=== PATIENT | female | born 1955 | race Caucasian/White ===

== ENCOUNTER 2017-12-14 09:26 | Outpatient (CLI) | payer OTHER | END 2017-12-14 09:27 | disposition home or self-care (01) | LOC: BICMAMMO 09:26 | PROVIDERS: ATTEND Family Medicine | DX: N63.21 Unspecified lump in the left breast, upper outer quadrant (principal); Z80.3 Family history of malignant neoplasm of breast | CPT/HCPCS: 77066; G0279 ==

== ENCOUNTER → 2018-01-04 | Day surgery (SDC) | payer OTHER | LOC: BICULT 11:55 | PROVIDERS: ATTEND Family Medicine | PROC: 0HBU3ZX Excision of Left Breast, Percutaneous Approach, Diagnostic (ICD-10-PCS; principal; 2018-01-04) | DX: C50.412 Malignant neoplasm of upper-outer quadrant of left female breast (principal) | CPT/HCPCS: 19083; 88305 ==

== ENCOUNTER 2018-01-22 09:24 | Outpatient (CLI) | payer OTHER ==
[~2018-01-22 09:24] MED LIST: Iopamidol 370 76% 100 ML VIAL ONE
--- NOTE | 2018-01-22 10:45 | ULT ---
SONOGRAM SOFT TISSUE LEFT AXILLA: HISTORY: Left breast cancer. FINDINGS: Sonographic evaluation of the left axilla was performed. No enlarged or otherwise abnormal-appearing axillary lymph nodes are visible. IMPRESSION: No significant abnormalities are demonstrated. POS: [facility]
--- NOTE | 2018-01-22 13:31 | CT ---
CHEST AND ABDOMEN AND PELVIC CT WITH COTNRAST: HISTORY: Breast cancer. Lump in left breast. COMPARISON: None. Baseline study. TECHNIQUE: Chest, abdomen, and pelvic CT are performed with IV contrast. Enteric contrast was not administered. Coronal reformatted images are submitted for interpretation. FINDINGS: CHEST CT: There is no mediastinal mass, lymphadenopathy, or hematoma. Heart size is within normal limits. No pericardial effusion. The thoracic aorta and abdominal aorta have a normal caliber. No periaortic f at stranding. Central pulmonary arteries are unremarkable. There is postsurgical change with probable residual tumor in the left breast. Bilaterally, no axilla ry lymphadenopathy. Trachea and central bronchi are patent. No suspicious masses or consolidation. No pleural effusion or pneumothorax. Calcified mediastinal and lung parenchymal nodules are noted, likely due to previou s granulomatous disease. ABDOMEN CT: Portal vein is patent. The liver, pancreas, and adrenal glands are unremarkable. There are hypodens ities in the spleen, some of which are too small to characterize. The largest hypodensity of the spl een measures 1.1 x 1.3 cm and is not completely characterized on this exam. Though these lesions are somewhat indeterminate, the absence of other areas of metastases suggest that the findings in the sp alvino are likely benign and are favored to represent hemangioma. There is symmetric enhancement of the kidneys. Bilaterally, no obstructive uropathy. No gastrohepatic, retrocrural, or periportal lymphadenopathy. No mesenteric mass, lymphadenopathy, free air, or free fluid. Gastric mucosa, duodenum, and multiple normal-caliber small bowel loops are noted. The ileocecal abe ction is normal. Normal-caliber contrast-filled appendix. Scattered fecal material in a nondistende d, nondilated colon. Minimal diverticulosis in the sigmoid colon. No diverticulitis. PELVIC CT: The urinary bladder is unremarkable. No pelvic mass, lymphadenopathy, free air, or free fluid. Uter us and adnexal structures are essentially unremarkable. There is a hypodensity with fat attenuation near the fundus of the uterus, incompletely evaluated. No evidence of pelvic lymphadenopathy. There are no lytic or blastic lesions in the osseous structures. IMPRESSION: 1. Left breast postsurgical changes with presumed residual tumor. 2. No evidence of metastases in the chest, abdomen, or pelvis. POS: [facility]
== END 2018-01-22 09:25 | disposition home or self-care (01) ==
LOC: ULT 09:24
PROVIDERS: ATTEND Internal Medicine Hematology & Oncology
DX: Z51.11 Encounter for antineoplastic chemotherapy (principal); C50.112 Malignant neoplasm of central portion of left female breast; I08.1 Rheumatic disorders of both mitral and tricuspid valves; Z79.899 Other long term (current) drug therapy
CPT/HCPCS: 71260; 74177; 76999; 93306

== ENCOUNTER 2018-01-26 09:57 | Day surgery (SDC) | payer OTHER ==
[2018-01-25 12:37] VITALS: BMI 24.1
[~2018-01-26 09:57] MED LIST changes: -Iopamidol 370 76% 100 ML VIAL ONE; +PROPOFOL 200 MG/20 ML VIAL ONE
[2018-01-26 11:15] LABS: #Lymphocytes 1.2 thou/uL (1.20-3.40); #Monocytes 0.2 thou/uL (0.11-0.59); #Neutrophils 6.9 thou/uL (1.40-6.50); %Basophils 0.1 % (0.0-1.0); %Eosinophils 0.2 % (0.0-10.0); %Lymphocytes 14.2 % (21.0-51.0); %Monocytes 2.9 % (0.0-10.0); %Neutrophils 82.7 % (42.0-75.0); Hemoglobin 14.8 g/dL (12.0-16.0); Mean Corpuscular Hemoglobin 29.8 pg (27.0-31.0); Mean Corpuscular Volume 90.3 fL (78.0-98.0); Mean Platelet Volume 8.4 fL (7.4-10.4); Platelet Count 215 thou/uL (130-400); RBC Distribution Width 11.9 % (11.5-14.5); Red Blood Cell (RBC) Count 4.96 mill/uL (4.20-5.40); White Blood Cell (WBC) Count 8.3 thou/uL (4.8-10.8)
[2018-01-26] MEDS ORDERED: CEFAZOLIN/Water 2 GM/20 ML SYRINGE ONE (11:19)
[2018-01-26 11:33] LABS: ALT (SGPT) 27 U/L (8-55); AST (SGOT) 24 U/L (5-34); Albumin 4.6 g/dL (3.4-4.8); Alkaline Phosphatase 53 U/L (40-150); Anion Gap 13 mmol/L (10-20); BUN (Urea Nitrogen) 17 mg/dL (9.8-20.1); Calc. Creatinine Clearance 82 mL/min (70-130); Calcium 9.7 mg/dL (7.8-10.44); Carbon Dioxide 27 mmol/L (23-31); Chloride 103 mmol/L (98-107); Estimated GFR-MDRD 77; Globulin 3.2 g/dL (2.4-3.5); Glucose 92 mg/dL (80-115); Potassium 3.7 mmol/L (3.5-5.1); Protein, Total 7.8 g/dL (6.0-8.3); Sodium 139 mmol/L (136-145)
[2018-01-26] MEDS ORDERED: Midazolam HCl 2 mg/2 ml Vial ONE (12:48)
[2018-01-26] MEDS ORDERED: Fentanyl 100 MCG/2 ML VIAL ONE (12:48)
[2018-01-26] MEDS ORDERED: Bupivacaine/Epinephrine 0.25% 30 ML VIAL ONE (12:48)
[2018-01-26] MEDS ORDERED: Propofol 500 MG/50 ML VIAL ONE (12:48)
[2018-01-26] MEDS ORDERED: Lidocaine 2% PF Inj 2 ML VIAL ONE (12:48)
[2018-01-26] MEDS ORDERED: HYDROcodone/Acetaminophen 5/325 mg Tablet ONE (14:40)
--- NOTE | 2018-01-26 14:57 | RAD ---
PORTABLE AP CHEST X-RAY: 01/26/2018 HISTORY: Post Mediport placement. COMPARISON: None available. FINDINGS: A right internal jugular vein Mediport catheter is noted in place with the tip overlying the distal S VC. The cardiac silhouette and pulmonary vasculature are within normal limits. The lungs are clear. No pneumothorax is seen. There is an increased density focus seen overlying the midline lower medi astinum, likely related to a calcified mediastinal lymph node. The osseous structures are intact. IMPRESSION: 1. No acute cardiopulmonary process. 2. Right internal jugular vein Mediport catheter without evidence of a pneumothorax. POS: [facility]
--- NOTE | 2018-01-26 15:07 | OP ---
DATE OF PROCEDURE: 01/26/2018 PREOPERATIVE DIAGNOSIS: Breast cancer. POSTOPERATIVE DIAGNOSIS: Breast cancer. PROCEDURE: Tunneled central line with subcutaneous port (MediPort, CT injectable) SURGEON: Raheel Park M.D. ANESTHESIA: TIVA local. COMPLICATIONS: None. SPECIMEN: None. FINDINGS: Tip of the catheter is at atriocaval junction. PROCEDURE IN DETAIL: The patient was taken to the operating room and placed supine on the table. Af ter sedation was obtained, bilateral neck and chest was prepped and draped in a sterile fashion. Loc al anesthetic infiltrated over the internal jugular vein. Internal jugular vein came using a 22-gaug e finder needle followed by a Seldinger needle. Wire was passed into the superior vena cava under fl uoroscopic guidance. A small eric was made at the wire entrance site. A separate 3-cm incision was made in the right upper chest. Subcutaneous pocket made below the lower incision. Tubing for the Me diPort tunneled from the inferior to superior incision and Yan sheath was placed over the wire i nto the superior vena cava under fluoroscopic guidance. The dilator and wire are removed. The end o f the catheter was threaded into the sheath as the sheath was peeled away. The tip of the catheter w as at the atriocaval junction. MediPort tubing cut to fit the MediPort at the lower incision, connec esthela to the MediPort which was sewn to the chest wall in the subcutaneous pocket. MediPort draws and flushes blood without difficulties flushed with a heparin flush. All wounds are irrigated and closed using 3-0 Vicryl, 4-0 Monocryl, and Dermabond. The patient was en route to recovery in stable condi tion. All instrument counts, needle counts, lap counts were correct.
== END 2018-01-26 15:25 | disposition home or self-care (01) ==
LOC: SDC 09:57
PROVIDERS: ATTEND Surgery
PROC: 05HM33Z Insertion of Infusion Device into Right Internal Jugular Vein, Percutaneous Approach (ICD-10-PCS; principal; 2018-01-26)
DX: C50.919 Malignant neoplasm of unspecified site of unspecified female breast (principal); I10 Essential (primary) hypertension; Z79.899 Other long term (current) drug therapy
CPT/HCPCS: 71045; 80053; 85025; C1788; J1642; J2250; J2704; J3010

== ENCOUNTER 2018-06-07 08:01 | Outpatient (CLI) | payer OTHER ==
[2018-06-07 11:20] LABS: #Eosinphils 0.1 thou/uL (0.0-0.7); #Lymphocytes 1.6 thou/uL (1.20-3.40); #Monocytes 0.6 thou/uL (0.11-0.59); #Neutrophils 3.8 thou/uL (1.40-6.50); %Basophils 0.4 % (0.0-1.0); %Eosinophils 1.2 % (0.0-10.0); %Lymphocytes 25.6 % (21.0-51.0); %Monocytes 10.4 % (0.0-10.0); %Neutrophils 62.5 % (42.0-75.0); Hemoglobin 12.6 g/dL (12.0-16.0); Mean Corpuscular HGB CONC 31.7 g/dL (32.0-36.0); Mean Corpuscular Volume 97.7 fL (78.0-98.0); Mean Platelet Volume 6.6 fL (7.4-10.4); Platelet Count 244 thou/uL (130-400); RBC Distribution Width 13.7 % (11.5-14.5); Red Blood Cell (RBC) Count 4.08 mill/uL (4.20-5.40); White Blood Cell (WBC) Count 6.2 thou/uL (4.8-10.8)
[2018-06-07 11:42] LABS: Anion Gap 10 mmol/L (10-20); BUN (Urea Nitrogen) 12 mg/dL (9.8-20.1); Calc. Creatinine Clearance 0 mL/min (70-130); Calcium 9.6 mg/dL (7.8-10.44); Carbon Dioxide 28 mmol/L (23-31); Chloride 103 mmol/L (98-107); Estimated GFR-MDRD 80; Glucose 89 mg/dL (80-115); Potassium 3.9 mmol/L (3.5-5.1); Sodium 137 mmol/L (136-145)
== END 2018-06-07 08:02 | disposition home or self-care (01) ==
LOC: LABBT 08:01
PROVIDERS: ATTEND Surgery
DX: Z01.818 Encounter for other preprocedural examination (principal); C50.912 Malignant neoplasm of unspecified site of left female breast
CPT/HCPCS: 80048; 85025; 93005; 93010

== ENCOUNTER 2018-06-14 06:56 | Day surgery (SDC) | payer OTHER ==
[2018-06-07 10:36] VITALS: BMI 24.4
[2018-06-14] MEDS ORDERED: Lidocaine 2% PF 5 ML VIAL ONE (09:45)
[2018-06-14] MEDS ORDERED: Bupivacaine HCl 0.5%/Epinephrine 1:200,000/PF 30 ml Vial ONE (09:45)
--- NOTE | 2018-06-14 10:29 | NM ---
LYMPHOSCINTIGRAPHY LEFT BREAST: HISTORY: Left breast cancer. FINDINGS: After explaining the procedure and answering all questions, the periareolar anterior aspect left christine st was cleansed. Sterile technique was used to carefully inject in 4 equal aliquots a total volume o f 394 mCi Technetium 99m filtered sulfur colloid in total volume of 1 cc at the 12 o'clock, 3 o'clock , 6 o'clock, and 9 o'clock periareolar positions of the left breast. Injection sites were carefully massaged by the patient. Initial imaging shows 2 foci of uptake at the axillary tail of the left breast and a single uptake ov er the left anterior chest at the expected location of the internal mammary chain. The most intense focus of uptake was the axillary tail node nearest the injection sites. The skin overlying the foci of uptake was marked and the patient was sent for day surgery. The patie nt tolerated the procedure well and was transferred in good condition. IMPRESSION: Technically successful lymphoscintigraphy left breast. POS: [facility]
[2018-06-14] MEDS ORDERED: Fentanyl 100 MCG/2 ML VIAL ONE ×2 (10:37→12:37)
[2018-06-14] MEDS ORDERED: CEFAZOLIN 2 GM/50 ML BAG ONE (10:43)
--- NOTE | 2018-06-14 12:20 | OP ---
DATE OF PROCEDURE: 06/14/2018 PREOPERATIVE DIAGNOSIS: Left breast cancer, status post neoadjuvant chemotherapy. POSTOPERATIVE DIAGNOSIS: Left breast cancer, status post neoadjuvant chemotherapy. PROCEDURES PERFORMED: 1. Left partial mastectomy after needle localization. 2. Left deep axillary node biopsy (sentinel node protocol). ANESTHESIA: General. ESTIMATED BLOOD LOSS: 20 mL. COMPLICATIONS: None. SPECIMEN: 1. Left breast mass marked with two short superior, one long lateral, and sent to specimen. X-ray of which revealed the clip to be in the specimen. Additional inferior margin is present with stitch on new margin. 2. [place] node x2, sent together for final pathology. DESCRIPTION OF PROCEDURE: The patient had undergone preop placement of needle localization wire in area previous biopsy and left breast as well as lymphoscintigraphy, which showed uptake in the left axilla, taken to the operating room, placed in the supine position on operating room table. After general anesthetic was obtained, 5 mL of methylene blue dye infiltrated on the left nipple massaged for 10 minutes. The left breast, chest, arm, and axilla were prepped and draped in a sterile fashion. A curved incision was made along the inferior hairline of the left axilla. The sentinel node was found using the Neoprobe. There were two areas of increased uptake on the back table. They were both sent as sentinel nodes. The background counts dropped to near zero. This wound was irrigated, closed using 3-0 Vicryl, 4-0 Monocryl, and Dermabond. An incision was made along the areolar edge of the left upper quadrant of left breast. Flaps were raised superior, inferior, medially, and laterally around the needle localization of wire. Specimen was marked with two short superior, one long lateral, sent to Path for final diagnosis. Specimen x-ray revealed the previous clip to be in the specimen. Additional inferior margin was obtained and stitch placed on new margin. The wound was irrigated. Local anesthetic was applied. The wound was closed using 3-0 Vicryl, 4-0 Monocryl, and Dermabond. The patient was sent to Recovery in stable condition. All instrument counts, needle counts, and lap counts are correct. Job ID: [id number]
--- NOTE | 2018-06-14 12:42 | MMO ---
NEEDLE LOCALIZATION MAMMOGRAPHIC GUIDED LEFT BREAST MASS SURGICAL SPECIMEN MAMMOGRAPHY: History: Left breast cancer. FINDINGS: After explaining the procedure and answering all questions, the large hyperdense mass and localizatio n clip within the superior lateral aspect of the left breast was visualized. Lateral approach was shakila nned. Sterile technique, buffered local anesthesia, mammographic guidance and a lateral approach were used to carefully advance a 17.5 cm [place] needle and wire through the hyperdense mass, immediately d eep to the localization clip. Guidewire was placed just beyond the mass. The needle and wire were secured externally. The patient tolerated the procedure well and was transfe rred to day surgery in good condition. Mammographic evaluation of the surgical specimen obtained by Dr. Park shows a hyperdense mass and localization clip in the tissue. Findings were called to Dr. Park in the OR at 1149 hours. IMPRESSION: Technically successful needle localization left breast mass. POS: [facility]
[2018-06-14] MEDS ORDERED: Sodium Chloride 0.9% 10 ML ONE (13:43)
[2018-06-14] MEDS ORDERED: PROPOFOL 200 MG/20 ML VIAL ONE (17:16)
[2018-06-14] MEDS ORDERED: Ketorolac Tromethamine 30 MG/ML VIAL ONE (17:16)
[2018-06-14] MEDS ORDERED: Ondansetron PF 4 MG/2 ML Vial ONE (17:16)
[2018-06-14] MEDS ORDERED: Dexamethasone 20 MG/5 ML VIAL ONE (17:16)
[2018-06-14] MEDS ORDERED: PHENYLEPHRINE-NS 100 MCG/ML 10 ML SYRINGE ONE (17:16)
== END 2018-06-14 14:10 | disposition home or self-care (01) ==
LOC: SDC 06:56
PROVIDERS: ATTEND Surgery
PROC: 0HBU0ZZ Excision of Left Breast, Open Approach (ICD-10-PCS; principal; 2018-06-14)
PROC: 07B60ZX Excision of Left Axillary Lymphatic, Open Approach, Diagnostic (ICD-10-PCS; principal; 2018-06-14)
DX: C50.512 Malignant neoplasm of lower-outer quadrant of left female breast (principal); I10 Essential (primary) hypertension; Z17.0 Estrogen receptor positive status [ER+]; Z92.21 Personal history of antineoplastic chemotherapy; Z79.899 Other long term (current) drug therapy
CPT/HCPCS: 19281; 76098; 78195; 88305; 88307; 88341; 88342; A9541; J0670; J1100; J1642; J1885; J2001; J2405; J2704; J3010; Q9968

== ENCOUNTER 2018-09-24 10:34 | Outpatient (CLI) | payer OTHER ==
--- NOTE | 2018-09-24 12:02 | BD ---
DEXA BONE DENSITY STUDY: HISTORY: Menopausal screening. LUMBAR SPINE BMD (g/cm2) T-SCORE L1 1.048 +0.5 L2 1.124 +0.9 L3 1.131 +0.4 L4 1.133 +0.7 TOTAL 1.111 +0.6 Within normal limits, with no increased risk for fracture. FEMORAL NECK BMD (g/mc2) T-SCORE LEFT FEMORAL NECK 0.795 -0.5 TOTAL 1.020 +0.6 Within normal limits with no increased risk for fracture. POS: [facility]
== END 2018-09-24 10:35 | disposition home or self-care (01) ==
LOC: BICMAMMO 10:34
PROVIDERS: ATTEND Internal Medicine Hematology & Oncology
DX: Z13.820 Encounter for screening for osteoporosis (principal); C50.919 Malignant neoplasm of unspecified site of unspecified female breast; T38.6X5A Adverse effect of antigonadotrophins, antiestrogens, antiandrogens, not elsewhere classified, initial encounter
CPT/HCPCS: 77080

== ENCOUNTER 2018-10-17 12:29 | Outpatient (CLI) | payer MEDICARE, OTHER | END 2018-10-17 12:30 | disposition home or self-care (01) | LOC: ULT 12:29 | PROVIDERS: ATTEND Internal Medicine Hematology & Oncology | DX: C50.112 Malignant neoplasm of central portion of left female breast (principal); I08.3 Combined rheumatic disorders of mitral, aortic and tricuspid valves | CPT/HCPCS: 93306 ==

== ENCOUNTER 2018-12-17 13:05 | Outpatient (CLI) | payer MEDICARE ==
--- NOTE | 2018-12-17 13:55 | MMO ---
Bilateral MAMMO Bilat Diag DDI+SID. CLINICAL HISTORY: Patient is 63 years old and is seen for diagnostic exam. The patient has the following family history of breast cancer: sister. The patient has a history of malignant (generic) in the left breast in 2018. The patient has a history of left Excisional Biopsy in 2018 - malignant. VIEWS: The views performed were: bilateral craniocaudal with tomosynthesis; bilateral mediolateral oblique with tomosynthesis; and bilateral mediolateral with tomosynthesis. FILMS COMPARED: The present examination has been compared to a prior imaging study performed at [facility] on 12/14/2017. MAMMOGRAM FINDINGS: The breasts are heterogeneously dense, which could obscure a lesion on mammography. There is an area of architectural distortion with associated post-surgical scar seen in the left breast. There are no suspicious masses, suspicious calcifications, or new areas of architectural distortion. IMPRESSION: A ROUTINE FOLLOW-UP MAMMOGRAM IN 1 YEAR IS RECOMMENDED. THE RESULTS OF THIS EXAM WERE SENT TO THE PATIENT. ACR BI-RADS Category 2 - Benign finding MAMMOGRAPHY NOTE: 1. A negative mammogram report should not delay a biopsy if a dominant of clinically suspicious mass is present. 2. Approximately 10% to 15% of breast cancers are not detected by mammography. 3. Adenosis and dense breasts may obscure an underlying neoplasm. Reported by: CHANDLER HARRISON MD Electonically Signed: [id number]
== END 2018-12-17 13:06 | disposition home or self-care (01) ==
LOC: BICMAMMO 13:05
PROVIDERS: ATTEND Internal Medicine Hematology & Oncology
DX: C50.912 Malignant neoplasm of unspecified site of left female breast (principal); Z80.3 Family history of malignant neoplasm of breast
CPT/HCPCS: 77066; G0279

== ENCOUNTER 2019-01-28 12:43 | Outpatient (CLI) | payer MEDICARE | END 2019-01-28 12:44 | disposition home or self-care (01) | LOC: ULT 12:43 | PROVIDERS: ATTEND Internal Medicine Hematology & Oncology | DX: C50.112 Malignant neoplasm of central portion of left female breast (principal); I08.1 Rheumatic disorders of both mitral and tricuspid valves | CPT/HCPCS: 80053; 82248; 83615; 84100; 84550; 93306 ==

== ENCOUNTER 2019-09-25 08:10 | Outpatient (CLI) | payer MEDICARE ==
--- NOTE | 2019-09-25 10:54 | BD ---
Exam: DEXA Bone Density Indications: Post menopausal screening Lumbar Spine: BMD (g/cm2) L1 1.009 T-Score: -0.2 L2 1.188 T-Score: 1.5 L3 1.177 T-Score: 0.8 L4 1.083 T-Score: 0.3 L1-L4 1.117 T-Score: 0.6 Femoral Neck: 0.778 T-Score: -0.6 Total Femur: 0.997 T-Score: 0.5 Total lumbar density 5-13-19 recorded at 1.111. Total femoral density 5-13-19 recorded at 1.020. IMPRESSION: Bone mineral density lumbar spine and femoral neck are both within normal range and show no significa nt change from last year, as noted above. POS: [facility]
== END 2019-09-25 08:11 | disposition home or self-care (01) ==
LOC: BICMAMMO 08:10
PROVIDERS: ATTEND Internal Medicine Hematology & Oncology
DX: Z13.820 Encounter for screening for osteoporosis (principal); Z78.0 Asymptomatic menopausal state
CPT/HCPCS: 77080

== ENCOUNTER → 2020-01-08 | Day surgery (SDC) | payer MEDICARE ==
--- NOTE | 2020-01-08 08:34 | MMO ---
Exam: Left breast stereotactic biopsy Surgical specimen Postprocedure mammogram COMPARISON: 12/31/2019. HISTORY: Left breast calcifications. FINDINGS: Successful left breast stereotactic biopsy. Total of six 10-gauge core biopsy samples were obtained. Patient tolerated the procedure well. No immediate or postprocedure complications. Biopsy clip was placed. Specimen radiograph: There are calcifications present in the specimen radiograph. Postprocedure mammogram performed. TECHNIQUE: Consent obtained to perform a left breast stereotactic biopsy. Left breast was compressed in the late ral projection. Calcifications were identified. Skin was prepped and draped in a sterile fashion. 1% lidocaine, buffered with sodium bicarbonate was used for local anesthesia. Under stereotactic guid ance, a biopsy was performed. A total of six 10-gauge core samples were obtained. Radiograph of the specimen was performed. Calcifications were present. Biopsy clip was placed. Postprocedure mammogram was performed. Postprocedure mammogram: Appropriate positioning of the biopsy clip. IMPRESSION: Successful left breast stereotactic biopsy. Transcribed Date/Time: 01/08/2020 9:19 AM
== END ==
LOC: MAMMO 06:52
PROVIDERS: ATTEND Internal Medicine Hematology & Oncology
PROC: 0H9U3ZX Drainage of Left Breast, Percutaneous Approach, Diagnostic (ICD-10-PCS; principal; 2020-01-08)
DX: N64.1 Fat necrosis of breast (principal); N61.0 Mastitis without abscess; R92.0 Mammographic microcalcification found on diagnostic imaging of breast
CPT/HCPCS: 19081; 76098; 88305

== ENCOUNTER 2022-01-10 09:50 | Outpatient (CLI) | payer MEDICARE | END 2022-01-10 09:51 | disposition home or self-care (01) | LOC: BICMAMMO 09:50 | PROVIDERS: ATTEND Internal Medicine Hematology & Oncology | DX: Z13.820 Encounter for screening for osteoporosis (principal); C50.112 Malignant neoplasm of central portion of left female breast; T38.6X5A Adverse effect of antigonadotrophins, antiestrogens, antiandrogens, not elsewhere classified, initial encounter; M85.851 Other specified disorders of bone density and structure, right thigh | CPT/HCPCS: 77066; 77080; G0279 ==

== ENCOUNTER 2023-01-11 12:41 | Outpatient (CLI) | payer MEDICARE | END 2023-01-11 12:42 | disposition home or self-care (01) | LOC: BICMAMMO 12:41 | PROVIDERS: ATTEND Internal Medicine Hematology & Oncology | DX: C50.112 Malignant neoplasm of central portion of left female breast (principal) | CPT/HCPCS: 77066; G0279 ==

== ENCOUNTER 2023-08-08 07:32 | Inpatient (IN) | payer MEDICARE ==
[2023-08-07 11:33] VITALS: BMI 24.5
[2023-08-08] MEDS ORDERED: fentaNYL 50 mcg/mL 1 mL Vial ONE ×4 (08:34→15:21)
[2023-08-08] MEDS ORDERED: Bupivacaine 0.25% HCL 30 ML VIAL ONE (08:34)
[2023-08-08] MEDS ORDERED: Midazolam HCl 2 mg/2 ml Vial ONE (08:34)
[2023-08-08] MEDS ORDERED: Sodium Chloride 0.9% 100 ML ONE (08:43)
[2023-08-08] MEDS ORDERED: cefOXitin 2 GM VIAL ONE (08:43)
[2023-08-08] MEDS ORDERED: PROPOFOL 20 ML ONE (09:03)
[2023-08-08] MEDS ORDERED: Rocuronium Bromide 10 MG/ML (10ML VIAL) ONE (09:04)
[2023-08-08] MEDS ORDERED: Lidocaine 1% PF 5 ML VIAL ONE (09:04)
[2023-08-08] MEDS ORDERED: Bupivacaine/Epinephrine 0.25% 30 ML VIAL ONE (09:20)
[2023-08-08] MEDS ORDERED: fentaNYL PF 100 MCG/2 ML SYRINGE ONE ×2 (10:51→12:37)
[2023-08-08] MEDS ORDERED: ePHEDrine Sulfate 50 MG/10 ML VIAL ONE (11:03)
[2023-08-08] MEDS ORDERED: Esmolol 100 MG/10 ML VIAL ONE (11:03)
[2023-08-08] MEDS ORDERED: Ondansetron PF 4 MG/2 ML Vial ONE (11:03)
[2023-08-08] MEDS ORDERED: Dexamethasone 20 MG/5 ML VIAL ONE (11:03)
[2023-08-08] MEDS ORDERED: SUGAMMADEX SODIUM 200 MG/2 ML VIAL ONE (12:37)
[2023-08-08] MEDS ORDERED: Ondansetron HCl/PF 4 MG/2 ML Vial IVP PRN (12:38)
[2023-08-08] MEDS ORDERED: Promethazine HCl 25 MG/ML VIAL IM PRN ×2 (12:38→14:31)
[2023-08-08] MEDS ORDERED: Ketorolac Tromethamine 30 MG (1 mL) VIAL ONE (12:39)
[2023-08-08] MEDS ORDERED: HYDROmorphone 0.5 MG/0.5 ML SYRINGE ONE (13:46)
[2023-08-08] MEDS ORDERED: Fentanyl 100 MCG/2 ML VIAL SLOW IVP PRN (14:31)
[2023-08-08] MEDS ORDERED: hydrALAZINE 20 MG/ML VIAL SLOW IVP PRN (14:31)
[2023-08-08] MEDS ORDERED: Ipratropium/Albuterol 3 ML NEB NEB PRN (14:31)
[2023-08-08] MEDS ORDERED: Acetaminophen 325 MG TAB PO PRN (14:31)
[2023-08-08] MEDS ORDERED: Ondansetron PF 4 MG/2 ML Vial IVP PRN (14:31)
[2023-08-08] MEDS: D5 1/2 NS w/20 mEq KCL 1,000 ML IV SCH (16:28)
[2023-08-08] MEDS: cefOXitin Sodium 1 GM in Sodium Chloride 0.9% 100 ML IVPB SCH (16:33)
[2023-08-08] MEDS: Ketorolac Tromethamine 30 MG (1 mL) VIAL IVP PRN (17:59)
[2023-08-08] MEDS: Famotidine/PF 20 mg/2ml Vial SLOW IVP SCH (21:02)
[2023-08-08] MEDS: Famotidine 20 MG TAB PO SCH (21:02)
[2023-08-08] MEDS: HYDROcodone/Acetaminophen 7.5/325 mg Tablet PO PRN (22:45)
[2023-08-09 04:02] LABS: #Basophils Less than 0.03 10x3/uL (0.0-0.2); #Eosinphils Less than 0.03 10x3/uL (0.0-0.7); %Basophils 0.2 % (0.0-1.0); %Eosinophils 0.2 % (0.0-10.0); %Lymphocytes 19.2 % (21.0-51.0); %Monocytes 9.6 % (0.0-10.0); %Neutrophils 70.5 % (42.0-75.0); Hematocrit 34.7 % (36.0-47.0); Hemoglobin 11.7 g/dL (12.0-16.0); Mean Corpuscular HGB CONC 33.7 g/dL (32.0-36.0); Mean Corpuscular Hemoglobin 29.8 pg (27.0-31.0); Mean Corpuscular Volume 88.5 fL (78.0-98.0); Mean Platelet Volume 10.4 fL (7.4-10.4); Platelet Count 208 10x3/uL (130-400); RBC Distribution Width 13.1 % (11.5-14.5); Red Blood Cell (RBC) Count 3.92 mill/uL (4.20-5.40)
[2023-08-09 04:20] LABS: Anion Gap 12 mmol/L (10-20); BUN (Urea Nitrogen) 8 mg/dL (9.8-20.1); Calc. Creatinine Clearance 85 mL/min (70-130); Calcium 8.8 mg/dL (7.8-10.44); Carbon Dioxide 23 mmol/L (23-31); Chloride 102 mmol/L (98-107); Estimated GFR 94; Glucose 145 mg/dL (80-115); Potassium 4.1 mmol/L (3.5-5.1); Sodium 133 mmol/L (136-145)
[2023-08-09] MEDS: HYDROcodone/Acetaminophen 7.5/325 mg Tablet PO PRN (06:10)
[2023-08-09] MEDS: Enoxaparin 40 MG (0.4 mL) SYRINGE SC SCH (09:21)
[2023-08-09] MEDS: Lisinopril 10 MG TAB PO SCH (09:22)
[2023-08-09] MEDS: Anastrozole 1 MG TAB PO SCH (09:23)
[2023-08-09] MEDS: D5 1/2 NS w/20 mEq KCL 1,000 ML IV SCH (09:31)
[2023-08-09] MEDS: traMADol HCl 50 MG TAB PO PRN (13:42)
[2023-08-10] MEDS: traMADol HCl 50 MG TAB PO PRN (00:44)
[2023-08-10 11:52] VITALS: BP 129/83; TEMP 97.9
== END 2023-08-10 12:45 | disposition home or self-care (01) | DRG 331 ==
LOC: SURG A 07:32 → SJJU 15:57
PROVIDERS: ADMIT Surgery; ATTEND Surgery
PROC: 0DBL4ZZ Excision of Transverse Colon, Percutaneous Endoscopic Approach (ICD-10-PCS; principal; 2023-08-08)
PROC: 8E0W4CZ Robotic Assisted Procedure of Trunk Region, Percutaneous Endoscopic Approach (ICD-10-PCS; 2023-08-08)
PROC: 3E033XZ Introduction of Vasopressor into Peripheral Vein, Percutaneous Approach (ICD-10-PCS; 2023-08-08)
DX: K63.89 Other specified diseases of intestine (principal)
CPT/HCPCS: 36415; 36416; 80048; 85025; 93005; 93010; A4314; A4333; J0665; J0694; J1100; J1170; J1650; J1885; J2250; J2405; J2704; J3010; J3480; J3490; S0028

== ENCOUNTER 2024-01-23 10:37 | Outpatient (CLI) | payer MEDICARE | END 2024-01-23 10:38 | disposition home or self-care (01) | LOC: BICMAMMO 10:37 | PROVIDERS: ATTEND Internal Medicine Hematology & Oncology | DX: Z12.31 Encounter for screening mammogram for malignant neoplasm of breast (principal); M85.89 Other specified disorders of bone density and structure, multiple sites; Z80.3 Family history of malignant neoplasm of breast; Z85.3 Personal history of malignant neoplasm of breast; Z91.89 Other specified personal risk factors, not elsewhere classified; Z98.890 Other specified postprocedural states | CPT/HCPCS: 77063; 77067; 77080 ==

== ENCOUNTER 2025-01-23 12:34 | Outpatient (CLI) | payer MEDICARE | END 2025-01-23 12:35 | disposition home or self-care (01) | LOC: BICMAMMO 12:34 | PROVIDERS: ATTEND Internal Medicine Hematology & Oncology | DX: Z12.31 Encounter for screening mammogram for malignant neoplasm of breast (principal); Z80.3 Family history of malignant neoplasm of breast; Z85.3 Personal history of malignant neoplasm of breast; Z91.89 Other specified personal risk factors, not elsewhere classified; Z98.890 Other specified postprocedural states | CPT/HCPCS: 77063; 77067 ==